=== PATIENT | male | born 1990 | race American Indian/Alaskan Native ===

== ENCOUNTER 2023-10-07 18:11 | Emergency (ER) | payer BC, OTHER ==
[~2023-10-07] VITALS: Ht 182.9 cm; Wt 93.2 kg
[2023-10-07 20:05] VITALS: BP 122/82; PULSE 79; RESP 15; TEMP 97.8; O2SAT 99
== END 2023-10-07 20:09 | disposition home or self-care (01) ==
LOC: ER 18:12
DX: S06.0X0A Concussion without loss of consciousness, initial encounter (principal); W19.XXXA Unspecified fall, initial encounter; Y93.89 Activity, other specified; Y92.89 Other specified places as the place of occurrence of the external cause; Y99.8 Other external cause status
CPT/HCPCS: 70450; 72125; 99284